=== PATIENT | male | born 1940 | race Caucasian/White ===

== ENCOUNTER 2016-09-04 05:59 | Day surgery (SDC) | payer MEDICARE ==
--- NOTE | ~2016-09-04 | EGD ---
EGD REPORT [facility] [address] [address] NAME: SHAZIA HILL : [birth year] STATUS : [facility]#: [id number] AGE: 75 ADM/REG DATE : 09/04/16 MR#: [id number] REPORT SERV DATE: 09/04/16 DICTATED BY: MIRNA MONTOYA DATE: 09/04/16 REPORT STATUS : Draft TRANSCRIBED BY: [employer] DATE: 09/04/16 [facility] Patient Name: Shazia Hill Date of : 1940 Attending MD: MIRNA MONTOYA MD Procedure Date No Time: 09/04/2016 Procedure: Colonoscopy Indications: High risk colon cancer surveillance: Personal history of colonic polyps, Last colonoscopy: 2011 Referring MD: ADEOLA CASTRO MD Medicines: See the Anesthesia note for documentation of the administered medications Complications: No immediate complications. Procedure: Pre-Anesthesia Assessment: - ASA Grade Assessment: III - A patient with severe systemic disease. After I obtained informed consent, the scope was passed under direct vision. Throughout the procedure, the patient's blood pressure, pulse, and oxygen saturations were monitored continuously. The PCF [id number] was introduced through the anus and advanced to the terminal ileum, with identification of the appendiceal orifice and IC valve. The colonoscopy was performed without difficulty. The patient tolerated the procedure well. The quality of the bowel preparation was adequate. Findings: The perianal and digital rectal examinations were normal. Diverticula were found in the sigmoid colon. Internal hemorrhoids were found during retroflexion and were large. Impression: - Diverticulosis in the sigmoid colon. - Internal hemorrhoids. Recommendation: - Patient has a contact number available for emergencies. The signs and symptoms of potential delayed complications were discussed with the patient. Return to normal activities tomorrow. Written discharge instructions were provided to the patient. - Regular diet. - Continue present medications. - Repeat colonoscopy is not recommended for surveillance. Procedure Code(s): --- Professional --- 68824, Colonoscopy, flexible, proximal to splenic EGD REPORT [facility] [address] [place], [place] [address]. [address] NAME: SHAZIA HILL : [birth year] STATUS : [facility] PAT#: [id number] AGE: 75 ADM/REG DATE : 09/04/16 MR#: [id number] REPORT SERV DATE: 09/04/16 DICTATED BY: MIRNA MONTOYA DATE: 09/04/16 REPORT STATUS : Draft TRANSCRIBED BY: [employer] DATE: 09/04/16 flexure; diagnostic, with or without collection of specimen(s) by brushing or washing, with or without colon decompression (separate procedure) Diagnosis Code(s): --- Professional --- K64.8, Other hemorrhoids K57.30, Diverticulosis of large intestine without perforation or abscess without bleeding Z86.010, Personal history of colonic polyps CPT copyright 2013 [employer]. All rights reserved. The codes documented in this report are preliminary and upon label coder review may be revised to meet current compliance requirements. Mirna Montoya MD MIRNA MONTOYA MD 09/04/2016 7:46 AM This report has been signed electronically. Number of Addenda: 0 Note Initiated On: 09/04/2016 7:23 AM Scope Withdrawal Time 0 hours 7 minutes 47 seconds [address] [place] [address]
[~2016-09-04 05:59] MED LIST: ALEVE220 MG PO; ASAB PO; DIABET2.5 PO; GLUCOPHAGE1000 MG PO; INVOKANA100 MG PO; LIPITOR10 PO; MULTIPLE VIT PO; VITE1000 PO
== END 2016-09-04 23:59 | disposition home health service (06) ==
LOC: DMU 05:59
PROVIDERS: Internal Medicine Gastroenterology
PROC: 0DJD8ZZ Inspection of Lower Intestinal Tract, Via Natural or Artificial Opening Endoscopic (ICD-10-PCS; principal; 2016-09-04 07:30)
DX: Z12.11 Encounter for screening for malignant neoplasm of colon (principal); K57.30 Diverticulosis of large intestine without perforation or abscess without bleeding; K64.8 Other hemorrhoids; I25.10 Atherosclerotic heart disease of native coronary artery without angina pectoris; I10 Essential (primary) hypertension; E11.9 Type 2 diabetes mellitus without complications; E78.00 Pure hypercholesterolemia, unspecified; M19.90 Unspecified osteoarthritis, unspecified site; Z79.82 Long term (current) use of aspirin; Z79.899 Other long term (current) drug therapy; Z87.891 Personal history of nicotine dependence; Z86.010 Personal history of colon polyps; Z95.1 Presence of aortocoronary bypass graft; Z98.890 Other specified postprocedural states
CPT/HCPCS: 82962; A9270-GY